=== PATIENT | female | born 1990 | race Caucasian/White ===

== ENCOUNTER 2023-02-09 15:32 | Outpatient (REF) | payer SELFPAY ==
--- NOTE | 2023-02-09 15:10 | PAPFT_PTH ---
PATIENT: Cynthia Garcia LOC: [facility] U#:[id number] AGE/SX: 32/F ROOM: RE02/09/[address]: Estela Jefferson NP : 1990 BED: DIS: 02/09/2023 SPEC #: [id number] RECD: 02/09/23 17:52 STATUS: MAGGIE RESoha #: [id number] IVORY: 02/09/23 15:[address]: Estela Jefferson NP DEPT: [facility] Cytology RECD BY: Joleen Rocha Tissues: 1 - CX/ENDOCX FOR PAP SMEARS Procedures: PAP THIN PREP/UVM Screening HPV DNA PROBE Comments: [id number]
== END 2023-02-09 15:33 | disposition home or self-care (01) ==
LOC: LBN 15:32
PROVIDERS: Visit Provider Nurse Practitioner Women's Health
DX: Z11.51 Encounter for screening for human papillomavirus (HPV) (principal)
CPT/HCPCS: 88142; 87624

== ENCOUNTER 2023-08-04 15:45 | Outpatient (REF) | payer BC, SELFPAY ==
[2023-08-04 15:02] LABS: Abs Immature Grans 0.02 10^3/uL (0.0-0.06); Absolute Basophil Count 0.05 10^3/uL (0.0-0.2); Absolute Eosinophil Count 0.08 10^3/uL (0.0-0.7); Absolute Lymphocyte Count 1.99 10^3/uL (1.2-3.4); Absolute Monocyte Count 0.46 10^3/uL (0.1-0.8); Basophils % 0.7; Eosinophils % 1.1; HCT 42.3 % (36.0-46.0); HGB 14.3 g/dL (11.2-15.7); Immature Grans % 0.3; Lymphocytes % 27.3; MCHC 33.8 % (32.0-36.0); MCV 92 fL (80-95); MPV 10.6 fL (8.0-11.0); Monocytes % 6.3; Neutrophils % 64.3; Platelet Count 305 10^3/uL (130-400); RBC 4.62 10^6/uL (3.93-5.22); RDW 11.5 % (11.7-14.6); RDW-SD 38.5 fL
[2023-08-04 16:08] LABS: ALT 23 U/L (14-59); AST 12 U/L (15-37); Albumin 4.2 g/dL (3.4-5.0); Alkaline Phosphatase 57 U/L (46-116); Anion Gap 6.7 mmol/L (3-11); BUN 10 mg/dL (7-18); Bilirubin, Total 0.7 mg/dL (0.2-1.0); CO2 29.3 mmol/L (21.0-32.0); CREATININE 0.8 mg/dL (0.55-1.02); Calcium 9.6 mg/dL (8.5-10.1); Chloride 101 mmol/L (98-107); Estimated GFR 99.71 (mL/min/1.73m2); Ferritin 38 ng/mL (8-252); Glucose 84 mg/dL (74-106); Potassium 4.3 mmol/L (3.5-5.1); Sodium 137 mmol/L (136-145); TSH (W/Ref FT4) 1.28 uIU/mL (0.36-3.74); Total Protein 7.4 g/dL (6.4-8.2)
[2023-08-04 16:26] LABS: Iron 218 ug/dL (50-170); Total Iron Binding Capacity 344 ug/dL (250-450); Transferrin Sat 63 % (15-50)
== END 2023-08-04 15:46 | disposition home or self-care (01) ==
LOC: NCHCN 15:45
PROVIDERS: Visit Provider Family Medicine
DX: R10.11 Right upper quadrant pain (principal); R53.83 Other fatigue
CPT/HCPCS: 80053; 82728; 83540; 83550; 84443; 85025

== ENCOUNTER 2024-08-10 13:28 | Outpatient (RCR) | payer BC, SELFPAY ==
--- NOTE | 2024-08-14 09:08 | HOLT_ITS ---
Date of service: 08/14/24 Time of Service: 09:08 Holter Monitor Report Referring Provider:: Lanette Zarate Indications:: Palpitations Holter Monitor Note: This is a 24-hour Holter monitor. Rhythm throughout was sinus with an average heart rate of 81. Minimum was 51, maximum 143. There were no ventricular dysrhythmias. There were 11 premature atrial contractions. There was no atrial fibrillation, no SVT, no high-grade AV block, no pauses g reater than 3 seconds. No symptoms were reported
== END 2024-08-31 23:59 | disposition home or self-care (01) ==
LOC: CARDOPNVT 13:28
PROVIDERS: PCP Family Medicine; Visit Provider Internal Medicine Cardiovascular Disease
DX: R00.2 Palpitations (principal); I49.1 Atrial premature depolarization
CPT/HCPCS: 93225; 93226